=== PATIENT | male | born 1960 | race Two or more races ===

== ENCOUNTER 2020-10-17 21:01 | Inpatient (IN) | payer MEDICAID, OTHER ==
[~2020-10-17] VITALS: Ht 170.2 cm; Wt 88.8 kg
[2020-10-17 22:16] LABS: Basophils # (auto) 0 10 ^3/uL (0-0.2); Basophils % (auto) 0.5 % (0.0-2.0); Eosinophils # (auto) 0.2 10 ^3/uL (0-0.8); Eosinophils % (auto) 1.7 % (0.0-7.0); Hemoglobin 16.1 g/dL (13.5-17.5); Lymphocytes # (auto) 3.3 10 ^3/uL (0.4-5.4); Lymphocytes % (auto) 37.5 % (10.0-50.0); Mean Corpuscular Hemoglobin 27.5 pg (28.0-32.0); Mean Corpuscular Hgb Conc. 33.5 g/dL (32.0-36.0); Mean Corpuscular Volume 82.1 fL (80.0-100.0); Monocytes # (auto) 0.5 10 ^3/uL (0-1.3); Monocytes % (auto) 5.9 % (0.0-12.0); Neutrophils # (auto) 4.8 10 ^3/uL (1.6-8.6); Neutrophils % (auto) 54.4 % (37.0-80.0); Nucleated Red Blood Cells % 0.1 %; Platelet Count (auto) 140 10^3/uL (140-450); Red Blood Cells 5.85 10^6/uL (4.5-5.90); Red Cell Distribution Width 13.9 % (11.8-14.3); White Blood Cell 8.8 10^3/uL (4.4-10.8)
[2020-10-17 22:42] LABS: Albumin 3.4 g/dL (3.4-5.0); Anion Gap 7 (5-15); Blood Urea Nitrogen 15 mg/dL (7-18); Calcium 8.7 mg/dL (8.5-10.1); Carbon Dioxide 27 mmol/L (21-32); Chloride 107 mmol/L (98-107); Glucose 115 mg/dL (74-106); Potassium 3.5 mmol/L (3.5-5.1); Sodium 141 mmol/L (136-145)
[2020-10-17 22:46] LABS: Alanine Aminotransferase 36 U/L (16-61); Alkaline Phosphatase 80 U/L (45-117); Aspartate Aminotransferase 25 U/L (15-37); BUN/Creatinine Ratio 14.4; Bilirubin, Total 0.2 mg/dL (0.2-1.0); GFR African American 94 mL/min; GFR Non-African American 77 mL/min; Total Protein 6.9 g/dL (6.4-8.2)
[2020-10-17 23:19] LABS: INR 0.97 (0.9-1.15); Partial Thromboplastin Time 26.2 sec (23.0-31.2)
[2020-10-18] MEDS ORDERED: cloNIDine HCL 0.1 MG TAB PO ONE
[2020-10-18] MEDS ORDERED: ASPirin-EC 325mg tab PO ONE
[2020-10-18] MEDS ORDERED: cloNIDine HCL 0.1 MG TAB PO PRN ×2 (06:45→16:00)
[2020-10-18] MEDS ORDERED: TEMAZEPAM 15 MG CAP PO PRN (06:45)
[2020-10-18] MEDS ORDERED: NITROGLYCERIN 0.4 MG SL TAB SL PRN (06:45)
[2020-10-18] MEDS ORDERED: ACETAMINOPHEN 325 MG TAB PO PRN (06:45)
[2020-10-18] MEDS ORDERED: MORPHINE SULF INJ 2 MG/ML SYRINGE 1ML IV PRN (06:45)
[2020-10-18] MEDS ORDERED: ONDANSETRON HCL 4 MG/2 ML VIAL IV PRN (06:45)
[2020-10-18] MEDS ORDERED: ADENOSINE 74 MG in GIVE UN-DILUTED 0 ML IV STA (08:58)
[2020-10-18 10:21] LABS: Magnesium 2.8 mg/dL (1.6-2.6)
[2020-10-18 15:18] VITALS: BP 161/94
[2020-10-18] MEDS: ENOXAPARIN SOD 40 MG/0.4 ML SYRINGE SC SCH (16:13)
[2020-10-18] MEDS: METOPROLOL TARTRATE 25 MG TAB PO SCH (16:13)
[2020-10-18] MEDS: ASPirin 81 mg TAB PO SCH (16:13)
[2020-10-18] MEDS: FAMOTIDINE 20 MG TAB PO SCH (16:13)
[2020-10-19 05:10] VITALS: BP 151/95
--- NOTE | 2020-10-19 05:10 | NUR ---
Telemetry admit from ER ANSELMO SANTIAGO admitted to Telemetry. Patient oriented to Hannah Whiteside, primary RN, unit, room, bed, and unit policies regarding patient care and visiting hours. Patient now on continuous telemetry monitoring, tele box #38 and telemetry reading on arrival to unit is SR 70. Patient IS ON ROOM AIR; SAT O2 IS 94%, weighed by bed scale and encouraged to call if they need something. All questions and concerns addressed, patient verbalized understanding. PATIENT DENIES CHEST PAIN AND DENIES CHEST PRESSURE AT THIS TIME. PATIENT BELONGINGS FORM SIGNED AND CHARTED. WILL CONTINUE TO MONITOR Q1H AND PRN.
[2020-10-19] MEDS: METOPROLOL TARTRATE 25 MG TAB PO SCH ×2 (05:35→10:36)
[2020-10-19] MEDS: FAMOTIDINE 20 MG TAB PO SCH ×2 (05:35→10:00)
[2020-10-19 06:01] VITALS: BP 151/95
--- NOTE | 2020-10-19 07:25 | NUR ---
CLOSING NOTE- NOC SHIFT ENDORSED PATIENT CARE TO DAY SHIFT NURSE ALLI LARRY. PATIENT IS COMFORTABLE IN BED. NO S/SX OF DISTRESS, SOB OR PAIN.
[2020-10-19 09:00] VITALS: BP 139/79
[2020-10-19] MEDS: ENOXAPARIN SOD 40 MG/0.4 ML SYRINGE SC SCH (10:00)
[2020-10-19] MEDS ORDERED: INFLUENZA QUAD 2020-2021 0.5 ML SYRG IM ONE (10:00)
[2020-10-19] MEDS: ASPirin 81 mg TAB PO SCH (10:34)
[2020-10-19 13:59] VITALS: BP 139/79
--- NOTE | 2020-10-19 14:47 | NUR ---
DISCHARGE INSTRUCTIONS AND RX GIVEN TO PT. VERBALIZED UNDERSTANDING. IV AND TELE BOX REMOVED. ALL APPROPRIATE PAPERWORK SIGNED. PT DISCHARGED HOME WITH FAMILY IN ATTENDANCE.
--- NOTE | 2020-10-19 15:09 | NUR ---
Regarding social service consult for advance directive, no insurance, no PCP. Patient discharge prior to assessment.
== END 2020-10-19 14:40 | disposition home or self-care (01) | DRG 199 ==
LOC: ER 21:02 → TELE 21:03 → TELE-CENTR 10-19 05:06
PROVIDERS: ADMIT Nurse Practitioner; ATTEND Internal Medicine
DX: I16.0 Hypertensive urgency (principal); E03.9 Hypothyroidism, unspecified; I10 Essential (primary) hypertension; E66.9 Obesity, unspecified; Z23 Encounter for immunization; Z20.828 Contact with and (suspected) exposure to other viral communicable diseases; Z79.899 Other long term (current) drug therapy; Z68.30 Body mass index [BMI] 30.0-30.9, adult
CPT/HCPCS: 36415; 71045; 78452; 80053; 80061; 83735; 83880; 84443; 84484; 85025; 85610; 85730; 87426; 93005; 93017; G0378; J0153

== ENCOUNTER 2021-08-15 00:47 | Inpatient (IN) | payer MEDICAID ==
[~2021-08-15] VITALS: Ht 170.2 cm; Wt 102.7 kg
[2021-08-15 01:45] LABS: Basophils # (auto) 0.1 10 ^3/uL (0-0.2); Basophils % (auto) 0.7 % (0.0-2.0); Eosinophils # (auto) 0.1 10 ^3/uL (0-0.8); Eosinophils % (auto) 1.5 % (0.0-7.0); Hematocrit 48.3 % (41.0-53.0); Hemoglobin 16.3 g/dL (13.5-17.5); Lymphocytes # (auto) 3.3 10 ^3/uL (0.4-5.4); Lymphocytes % (auto) 36.7 % (10.0-50.0); Mean Corpuscular Hemoglobin 27.9 pg (28.0-32.0); Mean Corpuscular Hgb Conc. 33.8 g/dL (32.0-36.0); Mean Corpuscular Volume 82.6 fL (80.0-100.0); Monocytes # (auto) 0.6 10 ^3/uL (0-1.3); Monocytes % (auto) 7.1 % (0.0-12.0); Neutrophils # (auto) 4.9 10 ^3/uL (1.6-8.6); Nucleated Red Blood Cells % 0.1 %; Red Blood Cells 5.84 10^6/uL (4.5-5.90); Red Cell Distribution Width 14.1 % (11.8-14.3)
[2021-08-15 02:02] LABS: Albumin 3.4 g/dL (3.4-5.0); Anion Gap 4 (5-15); BUN/Creatinine Ratio 20.6; Blood Urea Nitrogen 22 mg/dL (7-18); Calcium 9.2 mg/dL (8.5-10.1); Carbon Dioxide 29 mmol/L (21-32); Chloride 110 mmol/L (98-107); GFR African American 90 mL/min; GFR Non-African American 75 mL/min; Glucose 118 mg/dL (74-106); Potassium 5.1 mmol/L (3.5-5.1); Sodium 143 mmol/L (136-145)
[2021-08-15 02:07] LABS: Alanine Aminotransferase 54 U/L (16-61); Alkaline Phosphatase 80 U/L (45-117); Aspartate Aminotransferase 30 U/L (15-37); Bilirubin, Total 0.3 mg/dL (0.2-1.0); Total Protein 6.8 g/dL (6.4-8.2)
[2021-08-15] MEDS ORDERED: MORPHINE SULFATE 4 MG/ML SYR/VIAL IV ONE (03:45)
[2021-08-15] MEDS ORDERED: NITROGLYCERIN 0.4 MG SL TAB SL ONE (03:45)
[2021-08-15 04:12] LABS: INR 1.02 (0.9-1.15)
[2021-08-15] MEDS ORDERED: ONDANSETRON HCL 4 MG/2 ML VIAL IV PRN (07:15)
[2021-08-15] MEDS ORDERED: hydrALAZINE HCL 20 MG/ML VL IV PRN (07:15)
[2021-08-15] MEDS ORDERED: ACETAMINOPHEN 325 MG TAB PO PRN (07:15)
[2021-08-15] MEDS ORDERED: NITROGLYCERIN 0.4 MG SL TAB SL PRN (07:15)
[2021-08-15] MEDS ORDERED: MORPHINE SULFATE INJECTION 2 MG/ML SYRG IV PRN (07:15)
[2021-08-15] MEDS ORDERED: DOCUSATE SOD 100 MG CAP PO PRN (07:15)
[2021-08-15] MEDS ORDERED: MORPHINE SULFATE 4 MG/ML SYR/VIAL IV PRN (07:15)
[2021-08-15 08:00] LABS: Basophils # (auto) 0 10 ^3/uL (0-0.2); Basophils % (auto) 0.5 % (0.0-2.0); Eosinophils # (auto) 0.1 10 ^3/uL (0-0.8); Eosinophils % (auto) 0.7 % (0.0-7.0); Hematocrit 48.8 % (41.0-53.0); Hemoglobin 16.4 g/dL (13.5-17.5); Lymphocytes # (auto) 2.4 10 ^3/uL (0.4-5.4); Lymphocytes % (auto) 26.1 % (10.0-50.0); Mean Corpuscular Hgb Conc. 33.5 g/dL (32.0-36.0); Mean Corpuscular Volume 83.4 fL (80.0-100.0); Monocytes # (auto) 0.5 10 ^3/uL (0-1.3); Monocytes % (auto) 5.5 % (0.0-12.0); Neutrophils # (auto) 6.1 10 ^3/uL (1.6-8.6); Neutrophils % (auto) 67.2 % (37.0-80.0); Nucleated Red Blood Cells % 0.2 %; Red Blood Cells 5.85 10^6/uL (4.5-5.90); Red Cell Distribution Width 13.7 % (11.8-14.3); White Blood Cell 9.2 10^3/uL (4.4-10.8)
[2021-08-15 08:07] LABS: Albumin 3.6 g/dL (3.4-5.0); Potassium 4.7 mmol/L (3.5-5.1)
[2021-08-15 08:14] LABS: BUN/Creatinine Ratio 16.2
[2021-08-15 08:15] LABS: Bilirubin, Total 0.4 mg/dL (0.2-1.0); Calcium 9.5 mg/dL (8.5-10.1)
[2021-08-15] MEDS ORDERED: ASCORBIC ACID 500 MG TAB PO SCH (10:00)
[2021-08-15] MEDS ORDERED: ZINC SULFATE 220mg CAP or TAB PO SCH (10:00)
[2021-08-15] MEDS ORDERED: FAMOTIDINE (10MG/ML) 2ML VL IV SCH (10:00)
[2021-08-15] MEDS: METOPROLOL TARTRATE 25 MG TAB PO SCH ×3 (11:19→23:35)
[2021-08-15] MEDS: ASPirin 81 mg TAB PO SCH (11:19)
[2021-08-15] MEDS: MULTIPLE VITAMIN TAB PO SCH (11:20)
[2021-08-15] MEDS: SODIUM CHLOR 0.9% PF (SALINE LOCK) 10ML VIAL/SYR IV SCH ×2 (13:02→23:35)
[2021-08-15] MEDS: HYDROcodone-ACET 5/325MG TAB PO PRN (15:58)
[2021-08-15 21:51] VITALS: BP 170/84
[2021-08-15 22:00] VITALS: BP 132/77
[2021-08-15] MEDS ORDERED: ASPI1TAB20 PO (22:04)
[2021-08-15] MEDS ORDERED: LISI-716 PO (22:04)
[2021-08-15] MEDS ORDERED: METO25TA5 PO (22:04)
[2021-08-15] MEDS ORDERED: ATOR40TA52 PO (22:04)
[2021-08-15] MEDS ORDERED: ISOS1TAB28 PO (22:04)
[2021-08-15 23:00] VITALS: BP 127/68
[2021-08-15 23:09] VITALS: BP 170/84
[2021-08-15 23:19] VITALS: BP 127/68
[2021-08-15] MEDS: ATORVASTATIN 20 MG TAB PO SCH (23:35)
[2021-08-16 05:00] VITALS: BP 129/81
[2021-08-16] MEDS: SODIUM CHLOR 0.9% PF (SALINE LOCK) 10ML VIAL/SYR IV SCH ×3 (05:14→22:41)
[2021-08-16 05:39] LABS: Eosinophils # (auto) 0.1 10 ^3/uL (0-0.8); Lymphocytes # (auto) 2.9 10 ^3/uL (0.4-5.4)
[2021-08-16 05:44] LABS: Basophils # (auto) 0.1 10 ^3/uL (0-0.2); Basophils % (auto) 0.7 % (0.0-2.0); Eosinophils % (auto) 1.7 % (0.0-7.0); Hematocrit 49.8 % (41.0-53.0); Hemoglobin 16.6 g/dL (13.5-17.5); Lymphocytes % (auto) 36.9 % (10.0-50.0); Mean Corpuscular Hemoglobin 27.6 pg (28.0-32.0); Mean Corpuscular Hgb Conc. 33.4 g/dL (32.0-36.0); Mean Corpuscular Volume 82.5 fL (80.0-100.0); Monocytes # (auto) 0.6 10 ^3/uL (0-1.3); Monocytes % (auto) 7.2 % (0.0-12.0); Neutrophils # (auto) 4.3 10 ^3/uL (1.6-8.6); Neutrophils % (auto) 53.5 % (37.0-80.0); Nucleated Red Blood Cells % 0.1 %; Red Blood Cells 6.03 10^6/uL (4.5-5.90); Red Cell Distribution Width 13.8 % (11.8-14.3)
[2021-08-16 06:17] LABS: Alanine Aminotransferase 49 U/L (16-61); Albumin 3.1 g/dL (3.4-5.0); Anion Gap 5 (5-15); Aspartate Aminotransferase 23 U/L (15-37); BUN/Creatinine Ratio 14.4; Blood Urea Nitrogen 15 mg/dL (7-18); Calcium 8.6 mg/dL (8.5-10.1); Carbon Dioxide 25 mmol/L (21-32); Chloride 110 mmol/L (98-107); GFR African American 93 mL/min; GFR Non-African American 77 mL/min; Glucose 109 mg/dL (74-106); Potassium 4.3 mmol/L (3.5-5.1); Sodium 140 mmol/L (136-145)
[2021-08-16 06:20] LABS: Alkaline Phosphatase 78 U/L (45-117); Bilirubin, Total 0.6 mg/dL (0.2-1.0); Total Protein 6.6 g/dL (6.4-8.2)
[2021-08-16 09:00] VITALS: BP 145/79
[2021-08-16] MEDS: ASPirin 81 mg TAB PO SCH (10:44)
[2021-08-16] MEDS: FAMOTIDINE 20 MG TAB PO SCH (10:45)
[2021-08-16] MEDS: METOPROLOL TARTRATE 25 MG TAB PO SCH ×2 (10:45→22:42)
[2021-08-16] MEDS: MULTIPLE VITAMIN TAB PO SCH (10:45)
[2021-08-16 13:00] VITALS: BP 147/89
[2021-08-16 17:00] VITALS: BP 145/81
[2021-08-16 22:00] VITALS: BP 123/72
[2021-08-16] MEDS: ATORVASTATIN 20 MG TAB PO SCH (22:41)
[2021-08-16] MEDS: HYDROcodone-ACET 5/325MG TAB PO PRN (22:43)
[2021-08-17 05:00] VITALS: BP 139/90
[2021-08-17] MEDS: SODIUM CHLOR 0.9% PF (SALINE LOCK) 10ML VIAL/SYR IV SCH ×3 (05:34→22:05)
[2021-08-17 08:00] VITALS: BP 142/88
[2021-08-17 09:00] VITALS: BP 142/88
[2021-08-17] MEDS: METOPROLOL TARTRATE 25 MG TAB PO SCH ×2 (10:00→22:06)
[2021-08-17] MEDS: MULTIPLE VITAMIN TAB PO SCH (10:00)
[2021-08-17] MEDS: ASPirin 81 mg TAB PO SCH (10:07)
[2021-08-17] MEDS: FAMOTIDINE 20 MG TAB PO SCH (10:09)
[2021-08-17] MEDS ORDERED: LISINOPRIL 10 MG TAB PO ONE (11:30)
[2021-08-17 13:00] VITALS: BP 147/87
[2021-08-17 17:00] VITALS: BP 120/77
[2021-08-17 22:00] VITALS: BP 144/89
[2021-08-17] MEDS ORDERED: ATORVASTATIN 20 MG TAB PO SCH (22:00)
[2021-08-18 05:00] VITALS: BP 118/80
[2021-08-18] MEDS: SODIUM CHLOR 0.9% PF (SALINE LOCK) 10ML VIAL/SYR IV SCH ×2 (06:14→14:37)
[2021-08-18 08:00] VITALS: BP 118/58
[2021-08-18] MEDS ORDERED: ADENOSINE 86 MG in GIVE UN-DILUTED 0 ML IV STA (08:10)
[2021-08-18 09:00] VITALS: BP 126/79
[2021-08-18] MEDS: ASPirin 81 mg TAB PO SCH (09:26)
[2021-08-18] MEDS: MULTIPLE VITAMIN TAB PO SCH (09:26)
[2021-08-18] MEDS: FAMOTIDINE 20 MG TAB PO SCH (09:26)
[2021-08-18] MEDS: METOPROLOL TARTRATE 25 MG TAB PO SCH (09:28)
[2021-08-18] MEDS ORDERED: CHOL20007 PO (09:44)
[2021-08-18] MEDS ORDERED: LISINOPRIL 10 MG TAB PO SCH (10:00)
[2021-08-18 12:00] VITALS: BP 121/79
[2021-08-18 15:00] VITALS: BP 121/79
[2021-08-18 16:00] VITALS: BP 140/84
== END 2021-08-18 18:00 | disposition home or self-care (01) | DRG 203 ==
LOC: ER 00:47 → EDBD 00:47 → TELE 07:14 → TELE-WESTW 18:14
PROVIDERS: ADMIT Nurse Practitioner Family; ATTEND Family Medicine
DX: R07.89 Other chest pain (principal); E66.9 Obesity, unspecified; G47.33 Obstructive sleep apnea (adult) (pediatric); E78.1 Pure hyperglyceridemia; Z20.822 Contact with and (suspected) exposure to COVID-19; I10 Essential (primary) hypertension; E78.5 Hyperlipidemia, unspecified; Z82.49 Family history of ischemic heart disease and other diseases of the circulatory system; Z86.16 Personal history of COVID-19; Z68.33 Body mass index [BMI] 33.0-33.9, adult
CPT/HCPCS: 36415; 36600; 71045; 80053; 80061; 82805; 83036; 83880; 84439; 84443; 84484; 85025; 85379; 85610; 87426; 93005; 93017; 93306; 96374; 96375; G0378; J0153; J3490

== ENCOUNTER 2022-04-20 11:10 | Emergency (ER) | payer MEDICAID ==
[~2022-04-20] VITALS: Ht 170.2 cm; Wt 95.3 kg
[~2022-04-20 11:10] MED LIST: ASPI1TAB20 PO; ATOR40TA52 PO; CHOL20007 PO; ISOS1TAB28 PO; LISI-716 PO; METO25TA5 PO
[2022-04-20 11:17] VITALS: BP 146/95
[2022-04-20 13:47] LABS: Basophils # (auto) 0.1 10 ^3/uL (0-0.2); Basophils % (auto) 1.6 % (0.0-2.0); Eosinophils # (auto) 0.3 10 ^3/uL (0-0.8); Eosinophils % (auto) 4.3 % (0.0-7.0); Hematocrit 48.8 % (41.0-53.0); Hemoglobin 16.2 g/dL (13.5-17.5); Lymphocytes # (auto) 2.7 10 ^3/uL (0.4-5.4); Lymphocytes % (auto) 42.5 % (10.0-50.0); Mean Corpuscular Hemoglobin 27.2 pg (28.0-32.0); Mean Corpuscular Hgb Conc. 33.1 g/dL (32.0-36.0); Mean Corpuscular Volume 82.1 fL (80.0-100.0); Monocytes # (auto) 0.7 10 ^3/uL (0-1.3); Monocytes % (auto) 11.3 % (0.0-12.0); Neutrophils # (auto) 2.5 10 ^3/uL (1.6-8.6); Neutrophils % (auto) 40.3 % (37.0-80.0); Nucleated Red Blood Cells % 0.1 %; Red Blood Cells 5.95 10^6/uL (4.5-5.90); Red Cell Distribution Width 14.5 % (11.8-14.3); White Blood Cell 6.3 10^3/uL (4.4-10.8)
[2022-04-20 15:42] LABS: Albumin 3.9 g/dL (3.4-5.0); Calcium 9.2 mg/dL (8.5-10.1); Potassium 4.7 mmol/L (3.5-5.1)
[2022-04-20 15:45] LABS: BUN/Creatinine Ratio 11.7; Bilirubin, Total 0.6 mg/dL (0.2-1.0); Total Protein 7.8 g/dL (6.4-8.2)
[2022-04-20] MEDS ORDERED: AZIT250T9 PO (16:01)
== END 2022-04-20 16:27 | disposition home or self-care (01) ==
LOC: ER 11:10
DX: J18.9 Pneumonia, unspecified organism (principal); I10 Essential (primary) hypertension; I25.10 Atherosclerotic heart disease of native coronary artery without angina pectoris
CPT/HCPCS: 36415; 71045; 80053; 84484; 85025; 85379; 93005

== ENCOUNTER 2022-10-02 09:21 | Emergency (ER) | payer MEDICAID ==
[~2022-10-02] VITALS: Ht 157.5 cm; Wt 95.0 kg
[~2022-10-02 09:21] MED LIST changes: +AZIT250T9 PO
[2022-10-02 09:49] VITALS: BP 178/109
[2022-10-02 09:54] LABS: Eosinophils # (auto) 0.1 10 ^3/uL (0-0.8); Lymphocytes # (auto) 2.5 10 ^3/uL (0.4-5.4); Monocytes # (auto) 0.4 10 ^3/uL (0-1.3); Neutrophils # (auto) 2.7 10 ^3/uL (1.6-8.6); White Blood Cell 5.8 10^3/uL (4.4-10.8)
[2022-10-02 09:56] LABS: Basophils # (auto) 0 10 ^3/uL (0-0.2); Basophils % (auto) 0.8 % (0.0-2.0); Eosinophils % (auto) 1.8 % (0.0-7.0); Hemoglobin 16.8 g/dL (13.5-17.5); Mean Corpuscular Volume 81.8 fL (80.0-100.0); Monocytes % (auto) 6.4 % (0.0-12.0); Nucleated Red Blood Cells % 0.1 %; Red Blood Cells 6.23 10^6/uL (4.5-5.90); Red Cell Distribution Width 14.1 % (11.8-14.3)
[2022-10-02 11:30] LABS: Alanine Aminotransferase 95 U/L (16-61); Albumin 3.9 g/dL (3.4-5.0); Anion Gap 9 (5-15); Aspartate Aminotransferase 64 U/L (15-37); BUN/Creatinine Ratio 12.6; Blood Urea Nitrogen 15 mg/dL (7-18); Calcium 9.6 mg/dL (8.5-10.1); Carbon Dioxide 26 mmol/L (21-32); Chloride 107 mmol/L (98-107); GFR African American 80 mL/min; GFR Non-African American 66 mL/min; Glucose 109 mg/dL (74-106); Potassium 4.2 mmol/L (3.5-5.1); Sodium 142 mmol/L (136-145)
[2022-10-02 11:32] LABS: Alkaline Phosphatase 70 U/L (45-117); Bilirubin, Total 0.6 mg/dL (0.2-1.0); Total Protein 7.3 g/dL (6.4-8.2)
[2022-10-02] MEDS ORDERED: cloNIDine HCL 0.1 MG TAB PO ONE (12:15)
== END 2022-10-02 15:22 | disposition home or self-care (01) ==
LOC: ER 09:21
DX: R07.89 Other chest pain (principal); I10 Essential (primary) hypertension
CPT/HCPCS: 36415; 71045; 80053; 83880; 84484; 85025; 85379; 93005

== ENCOUNTER 2024-08-24 02:32 | Inpatient (IN) | payer MEDICAID ==
[~2024-08-24] VITALS: Ht 170.2 cm; Wt 96.6 kg
[~2024-08-24 02:32] MED LIST changes: +AZIT-43 PO; -AZIT250T9 PO; -LISI-716 PO; +LISI10TA34 PO
[2024-08-24 02:46] LABS: Basophils # (auto) 0.1 10 ^3/uL (0-0.2); Eosinophils # (auto) 0.2 10 ^3/uL (0-0.8); Eosinophils % (auto) 2.4 % (0.0-7.0); Hematocrit 47.4 % (41.0-53.0); Hemoglobin 15.9 g/dL (13.5-17.5); Lymphocytes # (auto) 3.9 10 ^3/uL (0.4-5.4); Lymphocytes % (auto) 42.8 % (10.0-50.0); Mean Corpuscular Hemoglobin 27.5 pg (28.0-32.0); Mean Corpuscular Hgb Conc. 33.4 g/dL (32.0-36.0); Mean Corpuscular Volume 82.1 fL (80.0-100.0); Monocytes # (auto) 0.7 10 ^3/uL (0-1.3); Monocytes % (auto) 7.7 % (0.0-12.0); Neutrophils # (auto) 4.2 10 ^3/uL (1.6-8.6); Neutrophils % (auto) 46.1 % (37.0-80.0); Nucleated Red Blood Cells % 0.1 %; Platelet Count (auto) 133 10^3/uL (140-450); Red Blood Cells 5.77 10^6/uL (4.5-5.90); Red Cell Distribution Width 14.4 % (11.8-14.3)
[2024-08-24 03:17] LABS: Alanine Aminotransferase 33 U/L (7-40); Albumin 4.4 g/dL (3.2-4.8); Alkaline Phosphatase 69 U/L (46-116); Anion Gap 6 (5-15); Aspartate Aminotransferase 24 U/L (13-40); BUN/Creatinine Ratio 11.7 (10.0-20.0); Blood Urea Nitrogen 16 mg/dL (9-23); Calcium 9.7 mg/dL (8.7-10.4); Carbon Dioxide 27 mmol/L (20-31); Chloride 110 mmol/L (98-107); Glucose 123 mg/dL (74-106); Potassium 3.9 mmol/L (3.5-5.1); Sodium 143 mmol/L (136-145)
[2024-08-24 03:18] LABS: Bilirubin, Total 0.4 mg/dL (0.2-1.0); Total Protein 6.9 g/dL (5.7-8.2)
[2024-08-24 07:41] VITALS: PULSE 60; RESP 17; O2SAT 98
[2024-08-24] MEDS ORDERED: MORPHINE SULFATE INJ 2 MG/ml SYRG IV PRN (13:45)
[2024-08-24] MEDS ORDERED: ONDANSETRON HCL 4 MG/2 ML VIAL IV PRN (13:45)
[2024-08-24] MEDS ORDERED: DOCUSATE SOD 100 MG CAP PO PRN (13:45)
[2024-08-24] MEDS ORDERED: ACETAMINOPHEN 325 MG TAB PO PRN (13:45)
[2024-08-24] MEDS ORDERED: HYDROcodone-ACET 5/325MG TAB PO PRN (13:45)
[2024-08-24] MEDS ORDERED: HYDROmorphone HCL 2 MG/ML VL/or syr IV PRN (13:45)
[2024-08-24 13:53] VITALS: BP 141/70; PULSE 52; RESP 18; TEMP 98.3; O2SAT 97
[2024-08-24 13:58] VITALS: O2SAT 97
[2024-08-24] MEDS: SODIUM CHLOR 0.9% PF (SALINE LOCK) 10ML VIAL/SYR IV SCH (14:23)
[2024-08-24] MEDS: LACTATED RINGER'S 1,000 ML IV ONE (14:43)
[2024-08-24] MEDS: ENOXAPARIN SOD 40 MG/0.4 ML SYRINGE SC SCH (14:44)
[2024-08-24] MEDS ORDERED: LISI40TA16 PO (18:40)
[2024-08-24] MEDS ORDERED: OME20GT PO (18:40)
[2024-08-24] MEDS ORDERED: FENO145T27 PO (18:40)
[2024-08-24] MEDS ORDERED: HYDR-3682 PO (18:41)
[2024-08-24] MEDS ORDERED: LEVO25TA6 PO (18:42)
[2024-08-24] MEDS: NITROGLYCERIN 0.4 MG SL TAB SL PRN (18:54)
[2024-08-24 21:38] VITALS: O2SAT 97
[2024-08-24] MEDS: ATORVASTATIN 20 MG TAB PO SCH (22:18)
[2024-08-24] MEDS: METOPROLOL TARTRATE 25 MG TAB PO SCH (23:00)
[2024-08-25] VITALS (7 sets, daily range): BP systolic 136–178; BP diastolic 81–97; PULSE 57–75; RESP 14–18; TEMP 97.9–98.5; O2SAT 95–99
[2024-08-25 05:58] LABS: Basophils # (auto) 0.1 10 ^3/uL (0-0.2); Basophils % (auto) 0.9 % (0.0-2.0); Eosinophils # (auto) 0.2 10 ^3/uL (0-0.8); Eosinophils % (auto) 3.3 % (0.0-7.0); Hematocrit 48.3 % (41.0-53.0); Hemoglobin 16.2 g/dL (13.5-17.5); Lymphocytes # (auto) 2.9 10 ^3/uL (0.4-5.4); Lymphocytes % (auto) 40.5 % (10.0-50.0); Mean Corpuscular Hemoglobin 27.6 pg (28.0-32.0); Mean Corpuscular Hgb Conc. 33.5 g/dL (32.0-36.0); Mean Corpuscular Volume 82.5 fL (80.0-100.0); Monocytes # (auto) 0.6 10 ^3/uL (0-1.3); Neutrophils # (auto) 3.4 10 ^3/uL (1.6-8.6); Neutrophils % (auto) 47.3 % (37.0-80.0); Nucleated Red Blood Cells % 0.1 %; Platelet Count (auto) 130 10^3/uL (140-450); Red Blood Cells 5.85 10^6/uL (4.5-5.90); Red Cell Distribution Width 14.6 % (11.8-14.3); White Blood Cell 7.2 10^3/uL (4.4-10.8)
[2024-08-25 06:20] LABS: Alanine Aminotransferase 31 U/L (7-40); Albumin 4.2 g/dL (3.2-4.8); Alkaline Phosphatase 60 U/L (46-116); Anion Gap 5 (5-15); Aspartate Aminotransferase 19 U/L (13-40); BUN/Creatinine Ratio 11.1 (10.0-20.0); Bilirubin, Total 0.8 mg/dL (0.2-1.0); Blood Urea Nitrogen 13 mg/dL (9-23); Calcium 9.9 mg/dL (8.7-10.4); Carbon Dioxide 28 mmol/L (20-31); Chloride 109 mmol/L (98-107); Glucose 101 mg/dL (74-106); Potassium 4.5 mmol/L (3.5-5.1); Sodium 142 mmol/L (136-145)
[2024-08-25 06:21] LABS: Total Protein 6.6 g/dL (5.7-8.2)
[2024-08-25] MEDS: ASPirin-EC 81 mg tab PO SCH (10:00)
[2024-08-25] MEDS: Isosorbide Mononitrate (Isosorbide Mononitrate Er) 30 MG TABLETS PO SCH (10:00)
[2024-08-25] MEDS: CHOLECALCIFEROL (VITD3) 1,000UNIT=25mCg TAB PO SCH (10:47)
[2024-08-25 11:08] LABS: Amphetamine Screen, Urine Neg (NEGATIVE); Barbiturate Scree,Urine Neg (NEGATIVE); Benzodiazephine Screen, Urine Neg (NEGATIVE); Creatinine, Urine 57.39 mg/dL (30.0-125.0)
[2024-08-25 11:09] LABS: Cannabinoid Screen, Urine Neg (NEGATIVE); Cocaine Screen, Urine Neg (NEGATIVE); Opiate Scree,Urine Neg (NEGATIVE); Phencyclidine Screen, Urine Neg (NEGATIVE)
[2024-08-25] MEDS ORDERED: METO25TA93 PO (16:42)
[2024-08-25] MEDS: ISOSORBIDE MONONITRATE ER 60 MG TAB PO SCH (21:01)
[2024-08-26] VITALS (13 sets, daily range): BP systolic 115–166; BP diastolic 65–84; PULSE 50–86; RESP 11–17; TEMP 97.4–98.3; O2SAT 93–99
[2024-08-26 07:03] LABS: Basophils # (auto) 0 10 ^3/uL (0-0.2); Basophils % (auto) 0.7 % (0.0-2.0); Eosinophils # (auto) 0.2 10 ^3/uL (0-0.8); Eosinophils % (auto) 2.3 % (0.0-7.0); Hematocrit 46.6 % (41.0-53.0); Hemoglobin 15.9 g/dL (13.5-17.5); Lymphocytes # (auto) 2.2 10 ^3/uL (0.4-5.4); Lymphocytes % (auto) 31.2 % (10.0-50.0); Mean Corpuscular Hemoglobin 27.8 pg (28.0-32.0); Mean Corpuscular Hgb Conc. 34.1 g/dL (32.0-36.0); Mean Corpuscular Volume 81.6 fL (80.0-100.0); Monocytes # (auto) 0.5 10 ^3/uL (0-1.3); Monocytes % (auto) 7.8 % (0.0-12.0); Platelet Count (auto) 140 10^3/uL (140-450); Red Blood Cells 5.72 10^6/uL (4.5-5.90); Red Cell Distribution Width 14.7 % (11.8-14.3)
[2024-08-26 07:13] LABS: INR 1.05 (0.9-1.15); Partial Thromboplastin Time 26.5 SEC (24.5-34.5); Prothrombin Time 11.1 sec (9.3-11.8)
[2024-08-26 07:34] LABS: Alanine Aminotransferase 27 U/L (7-40); Albumin 4.1 g/dL (3.2-4.8); Alkaline Phosphatase 60 U/L (46-116); Anion Gap 5 (5-15); Aspartate Aminotransferase 20 U/L (13-40); BUN/Creatinine Ratio 13.6 (10.0-20.0); Bilirubin, Total 0.5 mg/dL (0.2-1.0); Blood Urea Nitrogen 15 mg/dL (9-23); Carbon Dioxide 27 mmol/L (20-31); Chloride 109 mmol/L (98-107); Glucose 110 mg/dL (74-106); Potassium 4.4 mmol/L (3.5-5.1); Sodium 141 mmol/L (136-145); Total Protein 6.4 g/dL (5.7-8.2)
[2024-08-26] MEDS: IODIXANOL 320MG/ML 100ML BTL IV ONE (07:49)
[2024-08-26 08:20] LABS: Giant Platelets Few; Platelet Estimate Adequate
[2024-08-26] MEDS: ANGIOMAX 250 MG VIAL IV ONE (09:27)
[2024-08-26] MEDS: SODIUM CHL 0.9% 0 ML ONE (09:28)
[2024-08-26] MEDS: MIDAZOLAM HCL 2MG/2ML 2ml VIAL (1mg/ml) ONE (09:28)
[2024-08-26] MEDS: fentaNYL CITRATE 100 MCG/2 ML VL ONE (09:28)
[2024-08-26] MEDS: LIDOCAINE 2%HCL (LOCAL ANESTH.) INJ 20ML MDV ONE (09:28)
[2024-08-26] MEDS ORDERED: NITROGLYCERIN 50MG/250ML 250 ML IV ONE (09:55)
[2024-08-26] MEDS: VERAPAMIL 2.5MG/ML INJ 2ML VIAL IV ONE (10:14)
[2024-08-26] MEDS: HEPARIN SODIUM (PORCINE) 5000 UNITS/ML 1ML VIAL ONE (10:15)
[2024-08-27 01:00] VITALS: BP 128/78; PULSE 60; RESP 17; TEMP 97.9; O2SAT 97
[2024-08-27 05:00] VITALS: BP 116/70; PULSE 57; RESP 18; TEMP 97.9; O2SAT 98
[2024-08-27 06:45] LABS: Alanine Aminotransferase 28 U/L (7-40); Alkaline Phosphatase 66 U/L (46-116); Anion Gap 8 (5-15); Blood Urea Nitrogen 17 mg/dL (9-23); Calcium 10.6 mg/dL (8.7-10.4); Carbon Dioxide 25 mmol/L (20-31); Chloride 108 mmol/L (98-107); Glucose 119 mg/dL (74-106); Potassium 4.2 mmol/L (3.5-5.1); Sodium 141 mmol/L (136-145)
[2024-08-27 06:46] LABS: Albumin 4.1 g/dL (3.2-4.8); Aspartate Aminotransferase 18 U/L (13-40); Bilirubin, Total 0.5 mg/dL (0.2-1.0); Total Protein 6.6 g/dL (5.7-8.2)
[2024-08-27 07:05] LABS: Basophils # (auto) 0.1 10 ^3/uL (0-0.2); Basophils % (auto) 0.9 % (0.0-2.0); Eosinophils # (auto) 0.2 10 ^3/uL (0-0.8); Eosinophils % (auto) 3.1 % (0.0-7.0); Hematocrit 46.7 % (41.0-53.0); Lymphocytes # (auto) 2.5 10 ^3/uL (0.4-5.4); Lymphocytes % (auto) 35.6 % (10.0-50.0); Mean Corpuscular Hgb Conc. 34.3 g/dL (32.0-36.0); Mean Corpuscular Volume 81.8 fL (80.0-100.0); Monocytes # (auto) 0.6 10 ^3/uL (0-1.3); Monocytes % (auto) 8.2 % (0.0-12.0); Neutrophils # (auto) 3.7 10 ^3/uL (1.6-8.6); Neutrophils % (auto) 52.2 % (37.0-80.0); Nucleated Red Blood Cells % 0.1 %; Platelet Count (auto) 143 10^3/uL (140-450); Red Blood Cells 5.71 10^6/uL (4.5-5.90); Red Cell Distribution Width 14.4 % (11.8-14.3)
[2024-08-27 08:00] VITALS: PULSE 63; PULSE 73; RESP 17; O2SAT 96
[2024-08-27 08:30] VITALS: BP 116/71; PULSE 50; RESP 17; TEMP 97.6; O2SAT 99
[2024-08-27 13:04] VITALS: BP 140/84; PULSE 62; RESP 18; TEMP 97.4; O2SAT 95
[2024-08-27 14:32] VITALS: BP 140/84; PULSE 62; RESP 18; TEMP 97.4; O2SAT 95
[2024-08-28 12:02] LABS: Hepatitis B Surface Antigen Negative (Negative)
[2024-08-28 12:23] LABS: Hepatitis C Antibody Negative (Negative)
== END 2024-08-27 15:40 | disposition home or self-care (01) | DRG 192 ==
LOC: ER 02:32 → TELE 13:31 → TELE-WESTW 08-25 14:51
PROVIDERS: ADMIT Internal Medicine; ATTEND Student in an Organized Health Care Education/Training Program
PROC: 4A023N7 Measurement of Cardiac Sampling and Pressure, Left Heart, Percutaneous Approach (ICD-10-PCS; principal; 2024-08-26)
PROC: B211YZZ Fluoroscopy of Multiple Coronary Arteries using Other Contrast (ICD-10-PCS; 2024-08-26)
DX: M94.0 Chondrocostal junction syndrome [Tietze] (principal); N17.0 Acute kidney failure with tubular necrosis; D69.6 Thrombocytopenia, unspecified; E66.9 Obesity, unspecified; I10 Essential (primary) hypertension; G47.33 Obstructive sleep apnea (adult) (pediatric); E78.5 Hyperlipidemia, unspecified; I44.0 Atrioventricular block, first degree; Z82.49 Family history of ischemic heart disease and other diseases of the circulatory system; Z79.82 Long term (current) use of aspirin; Z79.899 Other long term (current) drug therapy; Z68.33 Body mass index [BMI] 33.0-33.9, adult
CPT/HCPCS: 36415; 70490; 71046; 76775; 80053; 80307; 82570; 84300; 84484; 85025; 85610; 85730; 86803; 86850; 86900; 86901; 87340; 93005; 93306; 93458; 99152; 99291; G0378; J2250; Q9967

== ENCOUNTER 2025-04-25 13:46 | Emergency (ER) | payer OTHER, MEDICAID ==
[~2025-04-25] VITALS: Ht 170.2 cm; Wt 101.3 kg
[~2025-04-25 13:46] MED LIST changes: -AZIT-43 PO; -CHOL20007 PO; +FENO145T27 PO; +HYDR-3682 PO; +LEVO25TA6 PO; -LISI10TA34 PO; -METO25TA5 PO; +METO25TA93 PO; +OME20GT PO
--- NOTE | 2025-04-25 16:21 | ED.PDOC ---
History of Present Illness HPI Comments 65 y/o M, with a history of hypothyroidism and hypertension, presents with 1x day history of throat swelling, sore throat, feels like when he had covid Chief Complaint: Shortness of Breath Time Seen by MD: 15:20 Primary Care Provider: [place] Allergies: Coded Allergies: NO KNOWN ALLERGIES (Unverified , 08/15/21) Home Meds Reported Medications Metoprolol Succinate (Metoprolol Succinate Er) 25 Mg Tab, 25 MG PO BID, TAB 08/25/24 Levothyroxine Sodium (Levothyroxine Sodium) 25 Mcg Tab, 75 MCG PO QAM, MCG 08/24/24 Hydroxyzine Hcl (Hydroxyzine Hcl) 25 Mg Tab, 25 MG PO DAILY PRN for ANXIETY, MG 08/24/24 Omeprazole (Prilosec Susp (For Gt)) 20 Mg Ss, 20 MG PO DAILY, ML 08/24/24 Fenofibrate (FENOFIBRATE) 145 Mg Tab, 145 MG PO DAILY, TAB 08/24/24 Atorvastatin Calcium (ATORVASTATIN CALCIUM) 40 Mg Tab, 1 TAB PO DAILY 08/15/21 Aspirin (Aspir-81) 81 Mg Tab, 1 TAB PO DAILY 08/15/21 Isosorbide Mononitrate (Isosorbide Mononitrate Er) 30 Mg Tab, 30 MG PO DAILY 08/15/21 Information Source: Patient, Spouse Mode of Arrival: Ambulatory Severity: Mild Timing: Days Duration: Since onset Past Medical History PAST MEDICAL HISTORY: CAD, HTN, Thyroid Surgical History: Denies all surgeries Family History Family History: Reviewed,noncontributory to illness Social History Smoker: Non-Smoker Alcohol: Denies ETOH Use Drugs: Denies Drug Use Lives In: Home Constitutional: denies: chills, diaphoresis, fatigue, fever, malaise, sweats, weakness, others EENTM: reports: others (clear voice, no airway swelling or discharge. no stridors or wheezes); denies: blurred vision, double vision, ear bleeding, ear d ischarge, ear drainage, ear pain, ear ringing, eye pain, eye redness, hearing loss, mouth pain, mouth swelling, nasal discharge, nose bleeding, nose congestion, nose pain, photophobia, tearing, throat pain, throat swelling, voice changes Respiratory: denies: cough, hemoptysis, orthopnea, SOB at rest, shortness of breath, SOB with excertion, stridor, wheezing, others Cardiovascular: denies: chest pain, dizzy spells, diaphoresis, Dyspnea on exertion, edema, irregular heart beat, left arm pain, lightheadedness, palpitations, PND, syncope, others Gastrointestinal: denies: abdomen distended, abdominal pain, blood streaked bowels, constipated, diarrhea, dysphagia, difficulty swallowing, hematemesis, melena, nausea, poor appetite, poor fluid intake, rectal bleeding, rectal pain, vomiting, others Genitourinary: denies: burning, dysuria, flank pain, frequency, hematuria, incontinence, penile discharge, penile sore, pain, testicle pain, testicle swelling, urgency, others Musculoskeletal: denies: back pain, gout, joint pain, joint swelling, muscle pain, muscle stiffness, neck pain, others Integumetry: denies: bruises, change in color, change in hair/nails, dryness, laceration, lesions, lumps, rash, wounds, others Allergic/Immunocompromised: denies: Difficulty Healing, Frequent Infections, Hives, Itching, others Hematologic/Lymphatic: denies: anemia, blood clots, easy bleeding, easy bruising, swollen glands, others Endocrine: denies: excessive hunger, excessive sweating, excessive thirst, excessive urination, flushing, intolerance to cold, intolerance to heat, unexplained weight gain, unexplained weight loss, others Psychiatric: denies: anxiety, bipolar disorder, depression, hopeless, panic disorder, schizophrenia, sleepless, suicidal, others All Other Systems: Reviewed and Negative (As per HPI) Physical Exam General Appearance: No Apparent Distress, Obese HEENT: Normal ENT Inspection, Pharynx Normal, TMs Normal Neck: Full Range of Motion, Non-Tender, Normal, Normal Inspection Respiratory: Chest Non-Tender, Lungs Clear, No Accessory Muscle Use, No Respiratory Distress, Normal Breath Sounds Cardiovascular: No Edema, No JVD, No Murmur, No Gallop, Normal Peripheral Pulses, Regular Rate/Rhythm Breast Exam: Deferred Gastrointestinal: No Organomegaly, Non Tender, No Pulsatile Mass, Normal Bowel Sounds, Soft Genitalia: Deferred Pelvic: Deferred Rectal: Deferred Extremities: No calf tenderness, Normal capillary refill, Normal inspection, Normal range of motion, Non-tender, No pedal edema Musculoskeletal : Apperance: Normal Neurologic: Alert, gold nib grinder II-XII nml as Tested, No Motor Deficits, Normal Affect, Normal Mood, No Sensory Deficits Cerebellar Function: Normal Reflexes: Normal Skin: Dry, Normal Color, Warm Lymphatic: No Adenopathy Was a procedure done? Was a procedure done?: No Differential Dx Considerations may include: pharyngitis, strep throat, viral syndrome, peritonsillar abscess, cervical adenopathy, neck mass, thyroid goiter, anxiety X-Ray, Labs, Meds, VS Vital Signs Date Time Temp Pulse Resp B/P (MAP) Pulse Ox O2 Delivery O2 Flow Rate FiO2 04/25/25 14:32 99.4 67 18 174/105 (128) 93 99.4 04/25/25 14:31 18 93 Room Air* 0 21 04/25/25 14:23 70 Lab Test 04/25/25 17:40 Range/Units Influenza Type A Antigen Negative Negative Influenza Type B Antigen Negative Negative SARS-CoV-2 Antigen (Rapid) Negative NEGATIVE Group A Streptococcus Rapid Negative Time of 1ST Reevaluation: 15:50 Reevaluation 1ST: Unchanged Patient Education/Counseling: Diagnosis, Treatment, Prognosis, Need For Follow Up Family Education/Counseling: Diagnosis, Treatment, Prognosis, Need For Follow Up, No Family Present Comments pt rests comfortably, without dyspnea, no stridors, no drooling, with normal voice and speech. neck soft tissue is unremarkable on xray. strep, covid, and influenza are tested negative pt likely has a viral uri. i will start him on claritin, nasonex to address any postnasal causes of his symptoms SEPSIS Sepsis Screen Date sepsis recognized/suspect: Apr 25, 2025 Time Sepsis recognized/suspect: 1416 Recent Procedure: No On Antibiotic Therapy: No Respiratory Rate >20: No Heart Rate >90: No Temp<36 C (96.8 F) or >38.3 C: No SBP <90 or MAP <65 mmHG: No New Acute Mental Status Change: No Is the patient on CPAP, BIPAP,: No Physician Orders Electrocardigram (04/25/25 14:21) Soft Tissue Neck (04/25/25 15:21) Vital Signs Date Time Temp Pulse Resp B/P (MAP) Pulse Ox O2 Delivery O2 Flow Rate FiO2 04/25/25 14:32 99.4 67 18 174/105 (128) 93 99.4 04/25/25 14:31 18 93 Room Air* 0 21 04/25/25 14:23 70 Departure 1 Departure Time of Disposition: 19:37 Impression: Primary Impression: Viral URI Additional Impression: Sore throat Disposition: HOME / SELF CARE / HOMELESS Condition: Good e-Prescriptions Mometasone Furoate (Nasal) (Nasonex 24Hr) 50 Mcg/Act Spr 50 MCG NA DAILY, #1 SPRAY Prov: SIERRA FENTON MD 04/25/25 Loratadine (Claritin) 10 Mg Cap 10 MG PO DAILY for 10 Days, #10 CAP Prov: SIERRA FENTON MD 04/25/25 Discharged With: Self, Spouse Critical Care Note Critical Care Time?: No Stability Stability form required: No Heart Score Heart Score: Heart Score Response (Comments) Value History N/A 0 EKG N/A 0 Age N/A 0 Risk Factors N/A 0 Troponin N/A 0 Total 0 I personally scribed for SIERRA FENTON MD ([email or web address]) on 04/25/25 at 16:21. El ectronically submitted by Duane Murdock [email or web address]). SIERRA FENTON MD Apr 25, 2025 16:21
--- NOTE | 2025-04-25 16:28 | DVH ---
Exam: US SOFT TISSUE NECK Clinical History: Neck mass Comparison: None Technique: Targeted sonographic evaluation of the soft tissues of the was obtained utilizing grayscale and col or Doppler imaging. Findings/Impression: There is no evidence for drainable collection. There is no evidence for solid or cystic mass in the site. No vascular abnormalities identified at this site. MRI recommended if clinical symptoms persist or worsen
[2025-04-25 18:45] LABS: COVID19 ANTIGEN SOFIA FIA NEGATIVE (NEGATIVE); Rapid Influenza A Negative (Negative); Rapid Influenza B Negative (Negative); Rapid Strep A Screen-Throat Negative
[2025-04-25] MEDS ORDERED: MOME50SP11 (19:39)
[2025-04-25] MEDS ORDERED: LORA10CA PO (19:39)
[2025-04-25 20:03] VITALS: BP 142/67; PULSE 72; RESP 20; TEMP 98.6; O2SAT 96
--- NOTE | 2025-04-27 10:26 | ECG ---
[facility] Test Date: 2025-04-25 Test Time: 14:23:24 Pat Name: ANSELMO SANTIAGO Department: ER Room: Gender: M Staff Editor: EDDIE : 1960 Requested By: EMERGENCY EMERGENCY Order Number: [id number] Reading MD: Zaire Sotomayor Measurements Intervals [place] Rate: 70 P: 15 MS: 207 QRS: 19 QRSD: 86 T: -6 QT: 376 QTc: 406 Interpretive Statements Sinus rhythm Borderline T abnormalities, inferior leads Electronically Signed On 04-28-2025 22:42:52 PDT by Zaire Sotomayor Please click the below link to view image of tracing.
== END 2025-04-25 20:10 | disposition home or self-care (01) ==
LOC: ER 13:46
DX: J06.9 Acute upper respiratory infection, unspecified (principal); J02.9 Acute pharyngitis, unspecified; B97.89 Other viral agents as the cause of diseases classified elsewhere; I25.10 Atherosclerotic heart disease of native coronary artery without angina pectoris; I10 Essential (primary) hypertension; E03.9 Hypothyroidism, unspecified; Z79.899 Other long term (current) drug therapy; Z20.822 Contact with and (suspected) exposure to COVID-19
CPT/HCPCS: 36415; 76536; 87070; 87426; 87804; 87880; 93005

== ENCOUNTER 2025-10-15 08:36 | Outpatient (CLI) | payer OTHER, MEDICAID ==
[~2025-10-15 08:36] MED LIST changes: +LORA10CA PO; +MOME50SP11
[2025-10-15 08:58] LABS: Hematocrit 48.0 % (41.0-53.0); Hemoglobin 16.1 g/dL (13.5-17.5); Mean Corpuscular Hemoglobin 26.7 pg (28.0-32.0); Mean Corpuscular Volume 79.8 fL (80.0-100.0); Nucleated Red Blood Cells % 1.8 %
[2025-10-15 09:01] LABS: Urine Protein, UAD Negative (Negative)
[2025-10-15 09:46] LABS: Alanine Aminotransferase 30 U/L (7-40); Albumin 4.2 g/dL (3.2-4.8); Alkaline Phosphatase 89 U/L (46-116); Anion Gap 8 (5-15); BUN/Creatinine Ratio 8.9 (10.0-20.0); Calcium 9.5 mg/dL (8.7-10.4); Carbon Dioxide 29 mmol/L (20-31); Chloride 105 mmol/L (98-107); Glucose 97 mg/dL (74-106); Potassium 4.6 mmol/L (3.5-5.1); Sodium 142 mmol/L (136-145); Total Protein 6.7 g/dL (5.7-8.2)
[2025-10-15 09:47] LABS: Cholesterol 156 mg/dL (< 200)
[2025-10-15 09:48] LABS: Bilirubin, Total 0.8 mg/dL (0.2-1.0); Blood Urea Nitrogen 9 mg/dL (9-23); HDL Cholesterol 28 mg/dL (40-59); Triglycerides 296 mg/dL (< 150)
[2025-10-15 10:14] LABS: Prostate Specific Antigen 1.49 ng/mL (0.0-4.0)
[2025-10-15 10:19] LABS: Free T4 (Free Thyroxine) 0.89 ng/dL (0.89-1.76)
== END 2025-10-15 17:00 | disposition home or self-care (01) ==
LOC: LAB 08:36
PROVIDERS: ATTEND Internal Medicine
DX: I10 Essential (primary) hypertension (principal); Z79.899 Other long term (current) drug therapy
CPT/HCPCS: 36415; 80053; 80061; 81001; 83036; 84153; 84439; 84443; 85025